=== PATIENT | female | born 1990 | race Caucasian/White ===

== ENCOUNTER 2019-01-22 18:27 | Inpatient (IN) | payer OTHER ==
[2019-01-22 19:43] LABS: Amnisure Test RUPTURE DETECTED (No Rupture)
[2019-01-22 19:45] LABS: Amnisure Internal Control QC ACCEPTABLE (ACCEPTABLE)
[2019-01-22 19:53] VITALS: BMI 27.9
[2019-01-22] MEDS ORDERED: hydrALAZINE 20 MG/ML VIAL SLOW IVP PRN (20:40)
[2019-01-22] MEDS ORDERED: Acetaminophen 500 MG TAB PO PRN (20:40)
[2019-01-22] MEDS ORDERED: Ibuprofen 800 MG TAB PO PRN (20:40)
[2019-01-22] MEDS ORDERED: Ondansetron PF 4 MG/2 ML Vial IVP PRN (20:40)
[2019-01-22] MEDS ORDERED: Lidocaine 1% (PF) 30 ML VIAL SC PRN (20:40)
[2019-01-22] MEDS ORDERED: NS / Oxytocin 40 units/1000ml 1,000 ML IV PRN (20:40)
[2019-01-22] MEDS ORDERED: HYDROcodone/Acetaminophen 5/325 mg Tablet PO PRN ×2 (20:40)
[2019-01-22] MEDS ORDERED: Butorphanol Tartrate 1 MG/ML VIAL SLOW IVP PRN (20:40)
[2019-01-22] MEDS ORDERED: Lactated Ringer's 1,000 ML IV SCH (20:45)
[2019-01-22 21:50] LABS: Hemoglobin 12.9 g/dL (12.0-16.0); Mean Corpuscular HGB CONC 34.6 g/dL (32.0-36.0); Mean Corpuscular Hemoglobin 32.3 pg (27.0-31.0); Mean Corpuscular Volume 93.4 fL (78.0-98.0); Mean Platelet Volume 8.7 fL (7.4-10.4); Platelet Count 227 thou/uL (130-400); RBC Distribution Width 12.1 % (11.5-14.5); Red Blood Cell (RBC) Count 3.98 mill/uL (4.20-5.40); White Blood Cell (WBC) Count 13.1 thou/uL (4.8-10.8)
[2019-01-22] MEDS: Dextrose 5%-Lactated Ringers 1,000 ML IV SCH (22:10)
[2019-01-22 22:26] LABS: HBSAg Index 0.41 S/CO (0-0.99); Hep B Surf Ag Non-Reactive S/CO (NonReactive); Syphilis Antibody Nonreactive (Nonreactive); Syphilis Antibody Index 0.02 S/CO (<1.00 Non-Reactive)
[2019-01-22] MEDS: NS w/ Oxytocin 10 units 500 ML IV SCH (22:35)
[2019-01-23] MEDS: Dextrose 5%-Lactated Ringers 1,000 ML IV SCH ×2 (06:20→10:35)
[2019-01-23] MEDS ORDERED: Fentanyl 4 mcg/Bup 0.1% Cadd 100 ML ONE ×2 (08:08→15:08)
[2019-01-23] MEDS ORDERED: Acetaminophen 325 MG TAB PO PRN (08:52)
[2019-01-23] MEDS ORDERED: diphenhydrAMINE 50 MG/ML VIAL IVP PRN (08:52)
[2019-01-23] MEDS ORDERED: Promethazine HCl 25 MG/ML VIAL IM PRN (08:52)
[2019-01-23] MEDS ORDERED: Lactated Ringer's 500 ML IV PRN (08:52)
[2019-01-23] MEDS ORDERED: Ondansetron PF 4 MG/2 ML Vial IVP PRN (08:52)
[2019-01-23] MEDS ORDERED: Naloxone HCl 0.4 mg/ml Vial IVP PRN ×2 (08:52)
[2019-01-23] MEDS ORDERED: ePHEDrine/0.9% NaCl/PF SYRINGE 50 mg/10 ml SLOW IVP PRN (08:52)
[2019-01-23] MEDS ORDERED: Communication Order-Pharmacy FS SCH (09:00)
[2019-01-23] MEDS ORDERED: Fentanyl 4 mcg/Bupivacaine 0.1% Cassette 100 ML EPIDURAL SCH (09:00)
--- NOTE | 2019-01-23 09:00 | PRG ---
DATE OF SERVICE: 01/23/2019 TIME OF EVALUATION: 0820 hours to 0827 hours. LOCATION: Labor and Delivery bed 2. Please labeled this as intrapartum progress note. In brief, I took over call this morning from Dr. Sunshine, and I evaluated the patient along with Dr. Francisca Shaver at bedside. The patient is a G2, P1 with last vaginal delivery being greater than 4 years ago. Last delivery was in 2011. She presents now with contractions and SROM and is now 4 cm by last exam. She is now on oxytocin. IUPC is in place. SUBJECTIVE: The patient is having some contractions and is awaiting an epidural. She is in no acute distress. OBJECTIVE: VITAL SIGNS: Stable, and her blood pressure is normotensive. She is afebrile. She is GBS negative. I reviewed the monitor and heart tones are in the 130s to 140s with moderate variability and accelerations. There were no pathological decelerations. It is category 1. Contractions are about every 3 to 5 minutes on IUPC. Cervical exam is currently deferred until she gets her epidural. ASSESSMENT: This is a G2, P1 at early term, 37 weeks and 3 days, on Pitocin augmentation of labor, Group B Streptococcus negative, still in latent phase. PLAN: 1. I discussed with the patient the labor course. 2. Need for recheck after epidural reviewed. 3. The patient looks comfortable and is doing well with contraction pain. 4. GBS negative. 5. No need for intervention at this time. Job ID: [id number]
[2019-01-23] MEDS: NS w/ Oxytocin 10 units 500 ML IV SCH (10:27)
[2019-01-23] MEDS ORDERED: NS / Oxytocin 40 units/1000ml 1,000 ML ONE (12:57)
[2019-01-23] MEDS ORDERED: Lidocaine 1% (PF) 30 ML VIAL ONE (12:57)
--- NOTE | 2019-01-23 14:54 | PDOC.EVN ---
Event Note - Event Note Event Note: L&D 1455 At Bedside now Pitocin in use My last exam was at around 1130 Strip reviewed
--- NOTE | 2019-01-23 16:40 | PDOC.OPDEL ---
OB Operative/Delivery Note Delivery Dr/Surgeon: Marcia Shaver Assist: Kraus (Staff/Attending) Pre-Delivery Diagnosis: active labor (Oxytocin augmentation) Procedure/Post Delivery Dx: spontaneous vaginal delivery (at 1628...vigorous female) Weeks gestation: 37 Anesthesia: epidural - Findings A - 1 min: 9 - 5 min: 9 - Additional Findings/Plan Placenta delivered: spontaneous (Leon, at 1633...intact, 3VC) Repaired Obstetrical Laceration: 1st degree (Left lateral sidewall not needing repair) Estimated blood loss: 100 Compilations/Other Findings: no complications Counts correct No vaginal packs Post delivery plan: routine recovery
[2019-01-23] MEDS ORDERED: Milk Of Magnesia 30 ML UDCUP PO PRN (17:57)
[2019-01-23] MEDS ORDERED: NS / Oxytocin 40 units/1000ml 1,000 ML IV SCH (17:57)
[2019-01-23] MEDS ORDERED: Adacel (T-DAP) 0.5 ML SYRINGE IM ONE (17:57)
[2019-01-23] MEDS ORDERED: hydrALAZINE 20 MG/ML VIAL SLOW IVP PRN (17:57)
[2019-01-23] MEDS ORDERED: Bisacodyl 10 MG SUPP PR PRN (17:57)
[2019-01-23] MEDS ORDERED: Ferrous Sulfate 325 MG TAB PO SCH (18:15)
[2019-01-23] MEDS: Ibuprofen 800 MG TAB PO SCH (20:23)
[2019-01-23] MEDS: Docusate Calcium (SURFAK) 240 MG CAP PO SCH (20:24)
[2019-01-24] MEDS: Ibuprofen 800 MG TAB PO SCH ×2 (05:14→14:27)
--- NOTE | 2019-01-24 06:25 | PDOC.PP ---
Post Progress Note Post Day #: 2 Subjective: Doing well, able to void PO intake tolerated: yes Flatus: yes Ambulation: yes Vital Signs (12 hours) Temp Pulse Resp BP Pulse Ox 01/24/19 05:10 97.7 F 72 18 109/55 L 01/24/19 00:25 98.0 F 72 18 105/52 L 01/23/19 21:20 98.7 F 106 H 18 123/61 01/23/19 20:20 99.1 F 101 H 18 117/72 01/23/19 19:00 98.9 F 89 18 124/78 98 Weight Weight 168 lb - Physical Examination General: NAD Abdominal: + bowel sounds, lochia, no distention, appropriately TTP Extremities: negative homans (B) Neurological: no gross focal deficits Psychiatric: A&Ox3, normal affect Result Diagrams: 01/22/19 21:38 Additional Labs: Post Labs Blood Type O POSITIVE 01/22/19 22:52 Hep Bs Antigen Non-Reactive S/CO (NonReactive) 01/22/19 21:38 (1) Normal vaginal delivery Code(s): O80 - ENCOUNTER FOR FULL-TERM UNCOMPLICATED DELIVERY Status: Acute - Assessment/Plan Assessment/Plan: 1. PPD 2....Doing well. No issues identified. OK for DC home at 24 hrs (at 1700) .
[2019-01-24] MEDS ORDERED: Prenatal Vitamin 1 TAB PO SCH (09:00)
[2019-01-24] MEDS: Ferrous Sulfate 325 MG TAB PO SCH ×2 (09:14→17:12)
[2019-01-24] MEDS: Docusate Calcium (SURFAK) 240 MG CAP PO SCH (09:14)
[2019-01-24 17:13] VITALS: BP 129/84; TEMP 98.6
== END 2019-01-24 18:20 | disposition home or self-care (01) | DRG 807 ==
LOC: L&D/OP 18:27 → L&D 01-23 00:20 → 3SW 01-23 19:11
PROVIDERS: ADMIT Obstetrics & Gynecology; ATTEND Obstetrics & Gynecology
PROC: 10E0XZZ Delivery of Products of Conception, External Approach (ICD-10-PCS; principal; 2019-01-23)
PROC: 10H07YZ Insertion of Other Device into Products of Conception, Via Natural or Artificial Opening (ICD-10-PCS; 2019-01-23)
DX: O70.0 First degree perineal laceration during delivery (principal); Z37.1 Single stillbirth; Z3A.37 37 weeks gestation of pregnancy
CPT/HCPCS: 36415; 51702; 84112; 85027; 86780; 86850; 86900; 86901; 87340; 99285; J2001; J2590; J7121